=== PATIENT | male | born 1985 | race Caucasian/White ===

== ENCOUNTER 2018-11-01 19:35 | Emergency (ER) | payer OTHER ==
[2018-11-01] MEDS ORDERED: HYDROCODONE/APAP 7.5/325 MG TAB ONE (20:08)
--- NOTE | 2018-11-01 21:05 | RAD REPORT ---
EXAM DESCRIPTION: RAD - Foot Left 3 View - 11/01/2018 8:28 pm CLINICAL HISTORY: Trauma, twisting injury, dorsal foot pain COMPARISON: None. FINDINGS: No fracture, dislocation or periosteal reaction. No acute or destructive bony process. No acute bone or joint finding identified. Minimal spurring at the Achilles attachment. No plantar spur . No air or foreign body in the soft tissues. IMPRESSION: Left foot shows no fracture or acute bone or joint finding.
--- NOTE | 2018-11-01 21:13 | EDPHYS ---
Physician Documentation [facility] Name: Alexander Mancera Age: 33 yrs Sex: Male : 1985 Arrival Date: 11/01/2018 Time: 19:39 Bed 23 Private MD: ED Physician Celestino Sales HPI: 11/01 20:00 This 33 yrs old Male presents to ER via Wheelchair with complaints of Foot cp Injury. 20:00 The patient presents with an injury, pain, that is acute, swelling, tenderness. The cp complaints affect the lateral aspect of left foot. Context: resulted from a mis-step, while walking down stairs. Onset: The symptoms/episode began/occurred today. Associated signs and symptoms: Pertinent positives: swelling, Pertinent negatives calf tenderness, numbness. Treatment prior to arrival includes: over the counter medications, NSAIDS. Severity of symptoms: in the emergency department the symptoms are unchanged, despite home interventions. Historical: - Allergies: 19:43 No Known Allergies; la1 - PMHx: 19:43 None; la1 - Immunization history:: Adult Immunizations up to date. - Social history:: Smoking status: Patient uses tobacco products, smokes one pack cigarettes per day. - Ebola Screening: : No symptoms or risks identified at this time. ROS: 20:05 Constitutional: Negative for body aches, chills, fever, poor PO intake. cp 20:05 Eyes: Negative for injury, pain, redness, and discharge. cp 20:05 ENT: Negative for drainage from ear(s), sore throat, difficulty swallowing, difficulty handling secretions. 20:05 Respiratory: Negative for cough, wheezing. 20:05 Abdomen/GI: Negative for abdominal pain, vomiting, diarrhea, constipation. 20:05 Back: Negative for pain at rest, pain with movement. 20:05 MS/extremity: Positive for pain, swelling, tenderness, of the lateral aspect of left foot, Negative for paresthesias. 20:05 Skin: Negative for cellulitis, rash. 20:05 Neuro: Negative for dizziness, headache. 20:05 All other systems are negative. Exam: 20:10 Constitutional: The patient appears in no acute distress, alert, awake, well developed, cp well nourished, uncomfortable. 20:10 Head/Face: Normocephalic, atraumatic. cp 20:10 Eyes: Periorbital structures: appear normal, Conjunctiva: normal, no exudate, no injection, Lids and lashes: appear normal, bilaterally. 20:10 ENT: External ear(s): are unremarkable, Nose: is normal, Mouth: Lips: moist, Oral mucosa: moist, Posterior pharynx: Airway: no evidence of obstruction, patent. 20:10 Chest/axilla: Inspection: normal. 20:10 Cardiovascular: Rate: normal, Rhythm: regular. 20:10 Respiratory: the patient does not display signs of respiratory distress, Respirations: normal, no use of accessory muscles, no retractions, no splinting, no tachypnea. 20:10 Abdomen/GI: Exam negative for discomfort, distension, guarding, Inspection: abdomen appears normal. 20:10 Back: pain, is absent, ROM is normal. 20:10 Musculoskeletal/extremity: Extremities: grossly normal except: noted in the lateral aspect of left foot: pain, swelling, tenderness, Perfusion: the extremity is normally perfused throughout, Sensation intact. 20:10 Skin: cellulitis, is not appreciated, no rash present. Vital Signs: 19:43 BP 146 / 90; Pulse 95; Resp 16; Temp 98.7; Pulse Ox 98% on R/A; Weight 95.25 kg; Height la1 5 ft. 11 in. (180.34 cm); 20:58 BP 138 / 79; Pulse 87; Resp 16; Pulse Ox 95% ; tl3 21:47 BP 111 / 76; Pulse 66; Resp 16; Pulse Ox 96% on R/A; tl3 19:43 Body Mass Index 29.29 (95.25 kg, 180.34 cm) la1 Procedures: 21:45 Splinting: Splint applied to left foot using walking boot. applied by nurse. Examined cp by me, post splint application: neurovascular intact, Patient tolerated. 21:45 Crutch training provided to patient and/or family. Return demonstration given. cp MDM: 19:45 Patient medically screened. cp 20:30 Differential diagnosis: dislocation, closed fracture, sprain. cp 21:10 Data reviewed: vital signs, nurses notes. cp 21:10 Counseling: I had a detailed discussion with the patient and/or guardian regarding: the cp historical points, exam findings, and any diagnostic results supporting the discharge/admit diagnosis, radiology results, to return to the emergency department if symptoms worsen or persist or if there are any questions or concerns that arise at home. 11/01 19:51 Order name: XRAY Foot LEFT 3 View; Complete Time: 21:07 cp 11/01 21:08 Interpretation: Reviewed report. 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 Impression: Pain in left foot. - Condition is Stable. - Discharge Instructions: Foot Sprain. - Prescriptions for Naprosyn 500 mg Oral Tablet - take 1 tablet by ORAL route 2 times per day take with food; 20 tablet. Tramadol 50 mg Oral Tablet - take 1 tablet by ORAL route every 8 hours as needed; 12 tablet. - Medication Reconciliation Form, Thank You Letter, Antibiotic Education, Prescription Opioid Use form. - Follow up: Reynold Yarbrough MD; When: 5 - 6 days; Reason: Recheck today's complaints. - Problem is new. - Symptoms have improved. Addendum: 11/03/2018 02:50 Co-signature as Attending Physician, Celestino Sales MD. g s Signatures: Dispatcher [employer] EDBoo Lara RN RN la1 Harinder Gray PA PA Celestino Gentile MD MD Flory Romero, RN RN tl3 Corrections: (The following items were deleted from the chart) 11/01 19:57 19:51 Ibuprofen 800 mg PO once ordered. cp tl3 21:50 21:12 11/01/2018 21:12 Discharged to Home. Impression: Pain in left foot. Condition is tl3 Stable. Forms are Medication Reconciliation Form, Thank You Letter, Antibiotic Education, Prescription Opioid Use. Follow up: Reynold Yarbrough; When: 5 - 6 days; Reason: Recheck today's complaints. Problem is new. Symptoms have improved. cp
--- NOTE | 2018-11-01 21:13 | ER ---
Nurse's Notes [facility] Name: Alexander Mancera Age: 33 yrs Sex: Male : 1985 Arrival Date: 11/01/2018 Time: 19:39 Bed 23 Private MD: Diagnosis: Pain in left foot Presentation: 11/01 19:43 Presenting complaint: Patient states: I was going down the steps and missed on rolling la1 my left ankle, CMS intact. Transition of care: patient was not received from another setting of care. Onset of symptoms was November 01, 2018. Risk Assessment: Do you want to hurt yourself or someone else? Patient reports no desire to harm self or others. Initial Sepsis Screen: Does the patient meet any 2 criteria? No. Patient's initial sepsis screen is negative. Does the patient have a suspected source of infection? No. Patient's initial sepsis screen is negative. Care prior to arrival: None. 19:43 Method Of Arrival: Wheelchair la1 19:43 Acuity: ROSS 4 la1 Historical: - Allergies: 19:43 No Known Allergies; la1 - PMHx: 19:43 None; la1 - Immunization history:: Adult Immunizations up to date. - Social history:: Smoking status: Patient uses tobacco products, smokes one pack cigarettes per day. - Ebola Screening: : No symptoms or risks identified at this time. Screenin:49 Abuse screen: Denies threats or abuse. Nutritional screening: No deficits noted. tl3 Tuberculosis screening: No symptoms or risk factors identified. Fall Risk None identified. Assessment: 19:49 General: Appears uncomfortable, well groomed, well developed, well nourished, Behavior tl3 is calm, cooperative, appropriate for age. Pain: Complains of pain in left foot. Neuro: Level of Consciousness is awake, alert, obeys commands, Oriented to person, place, time, situation, Appropriate for age. Cardiovascular: Capillary refill < 3 seconds in left toes Patient's skin is warm and dry. Respiratory: Airway is patent Respiratory effort is even, unlabored, Respiratory pattern is regular, symmetrical. GI: No signs and/or symptoms were reported involving the gastrointestinal system. : No signs and/or symptoms were reported regarding the genitourinary system. EENT: No signs and/or symptoms were reported regarding the EENT system. Derm: No signs and/or symptoms reported regarding the dermatologic system. Musculoskeletal: Capillary refill < 3 seconds, Swelling present in left lateral malleolus. 19:49 Injury Description: pt twisted ankle on step about an hour and a half ago. tl3 20:58 Reassessment: Patient appears in no apparent distress at this time. No changes from tl3 previously documented assessment. Patient and/or family updated on plan of care and expected duration. Pain level reassessed. Patient is alert, oriented x 3, equal unlabored respirations, skin warm/dry/pink. 21:47 Reassessment: No changes from previously documented assessment. Patient and/or family tl3 updated on plan of care and expected duration. Pain level reassessed. Patient is alert, oriented x 3, equal unlabored respirations, skin warm/dry/pink. Vital Signs: 19:43 BP 146 / 90; Pulse 95; Resp 16; Temp 98.7; Pulse Ox 98% on R/A; Weight 95.25 kg; Height la1 5 ft. 11 in. (180.34 cm); 20:58 BP 138 / 79; Pulse 87; Resp 16; Pulse Ox 95% ; tl3 21:47 BP 111 / 76; Pulse 66; Resp 16; Pulse Ox 96% on R/A; tl3 19:43 Body Mass Index 29.29 (95.25 kg, 180.34 cm) la1 ED Course: 19:39 Patient arrived in ED. ds1 19:43 Triage completed. la1 19:44 Harinder Gray PA is PHCP. cp 19:44 Arm band placed on left wrist. la1 19:45 Celestino Sales MD is Attending Physician. cp 19:45 Flory Romero, RN is Primary Nurse. tl3 19:49 Patient has correct armband on for positive identification. Bed in low position. Call tl3 light in reach. Side rails up X 1. 19:49 No provider procedures requiring assistance completed. Patient did not have IV access tl3 during this emergency room visit. 20:23 XRAY Foot LEFT 3 View In Process Unspecified. EDMS 21:10 Reynold Yarbrough MD is Referral Physician. cp 21:47 Crutch training done. walking boot. 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 lona 21:47 Discharged to home with crutches. tl3 21:47 Condition: stable 21:47 Discharge instructions given to patient, Instructed on discharge instructions, follow up and referral plans. Demonstrated understanding of instructions, follow-up care, medications, Prescriptions given X 2. 21:50 Patient left the ED. tl3 Signatures: Dispatcher [employer] EDNV Pennie Tomlin ds1 Boo Briones, RN RN la1 Harinder Gray PA PA cp Lowrey, Tammy, RN RN tl3
== END 2018-11-01 21:50 | disposition home or self-care (01) ==
LOC: ER 19:35
DX: M79.672 Pain in left foot (principal); F17.210 Nicotine dependence, cigarettes, uncomplicated
CPT/HCPCS: 99284